=== PATIENT | female | born 1970 | race Caucasian/White ===

== ENCOUNTER 2018-01-20 23:13 | Emergency (ER) | payer MEDICAID ==
[~2018-01-20] VITALS: Ht 152.4 cm; Wt 49.9 kg
--- NOTE | 2018-01-20 23:39 | Emergency Room Report ---
History of Present Illness General Chief Complaint: Head Injury Source: Patient Present Illness HPI This is a 47-year-old female with no significant past medical issue. She presents with chief complaint of head injury and right shoulder pain. She is walking down the steps and missed a step and fell down 67 step. She hit her head. She had a brief loss of consciousness. Also complaining of right shoulder pain. Pain is 10 out of 10. Worse with movement. Better with rest. Onset was just prior to arrival. No vomiting. Allergies: Coded Allergies: NSAIDS (NON-STEROIDAL ANTI-INFLAMMA (Verified Allergy, Unknown, 01/20/18) PENICILLINS (Verified Allergy, Unknown, 01/20/18) Patient History Past Medical History: see triage record, old chart reviewed Past Surgical History: other Pertinent Family History: none Social History: Reports: smoking Last Menstrual Period: miscarriage 01/12/2018 Now: No Immunizations: other Reviewed Nursing Documentation: PMH: Agreed; PSxH: Agreed Nursing Documentation-PMH Past Medical History: No Stated History Review of Systems Eye: Denies: eye pain, blurred vision ENT: Denies: ear pain, nose congestion, throat swelling Respiratory: Denies: cough, shortness of breath Cardiovascular: Denies: chest pain, palpitations Gastrointestinal: Denies: abdominal pain, diarrhea, nausea, vomiting Musculoskeletal: Reports: joint pain, muscle stiffness; Denies: back pain Skin: Denies: rash Neurological: Denies: headache, numbness Endocrine: Denies: increased thirst, increased urine Hematologic/Lymphatic: Denies: easy bruising All Other Systems: negative except mentioned in HPI Physical Exam Vital Signs Date Time Temp Pulse Resp B/P (MAP) Pulse Ox O2 Delivery O2 Flow Rate FiO2 01/20/18 23:22 98.2 102 16 102/69 96 Room Air vitals normal Sp02 EP Interpretation: reviewed, normal General Appearance: well appearing, no apparent distress, alert Head: normocephalic, other - 1 cm superficial laceration to right upper eyelid. Well approximated. Mild hematoma. Eyes: bilateral eye PERRL, bilateral eye EOMI ENT: hearing grossly normal, normal pharynx Neck: full range of motion, supple, no meningismus Respiratory: chest non-tender, lungs clear, normal breath sounds Cardiovascular #1: regular rate, rhythm, no murmur Gastrointestinal: normal bowel sounds, non tender, no mass, no organomegaly, no bruit, non-distended Musculoskeletal: back normal, gait/station normal, normal range of motion, other - Right shoulder pain diffusely. Psychiatric: mood/affect normal Skin: warm/dry Medical Decision Making Diagnostic Impression: Primary Impression: Acute head injury Qualified Codes: S09.90XA - Unspecified injury of head, initial encounter Additional Impressions: Facial laceration Qualified Codes: S01.81XA - Laceration without foreign body of other part of head, initial encounter Contusion of shoulder, right Qualified Codes: S40.011A - Contusion of right shoulder, initial encounter ER Course Patient present with a head injury. She has a small laceration that does not need suturing. She keep asking for pain medication. She's been here numerous times in the past with different pain complaint. I did give her [place]. I'm uncomfortable prescribing anything more. We'll discharge home. CT/MRI/US Diagnostic Results CT/MRI/US Diagnostic Results : Imaging Test Ordered: CT head Impression negative per radiologist Last Vital Signs Date Time Temp Pulse Resp B/P (MAP) Pulse Ox O2 Delivery O2 Flow Rate FiO2 01/20/18 23:22 98.2 102 16 102/69 96 Room Air Status: improved Disposition: HOME, SELF-CARE Condition: Stable Scripts Hydrocodone/Acetaminophen 5-325* (HYDROCODONE/ACETAMINOPHEN 5-325*) 1 Each Tablet 1 TAB ORAL Q6H PRN for For Pain, #10 TAB 0 Refills Prov: Chauncey Mcmanus MD 01/21/18 Additional Instructions: Follow-up with your doctor in 7 days. Return if symptom worsen. Chauncey Mcmanus MD Jan 20, 2018 23:39
[2018-01-20] MEDS ORDERED: Norco 5mg/325mg tab ORAL ONE (23:45)
[2018-01-20 23:47] VITALS: BP 92/58
--- NOTE | 2018-01-21 00:50 | Diagnostic Imaging Report ---
EXAM: CT Head Without Intravenous Contrast CLINICAL HISTORY: TRAUMA TECHNIQUE: Axial computed tomography images of the head/brain without intravenous contrast. CTDI is 70 mGy and DLP is 1400 mGy-cm. One or more of the following dose reduction techniques were used: automated exposure control, adjustment of the mA and/or kV according to patient size, use of iterative reconstruction technique. COMPARISON: None. FINDINGS: Brain: Streak artifact in the skull base region. Grossly, no acute intracranial hemorrhage. Age-appropriate white matter appearance. Ventricles: Unremarkable. No ventriculomegaly. Bones/joints: Unremarkable. No acute fracture. Soft tissues: Extracranial soft tissue contusion. Sinuses: Unremarkable as visualized. Mastoid air cells: Unremarkable as visualized. No mastoid effusion. IMPRESSION: No acute intracranial hemorrhage or skull fractures.
[2018-01-21] MEDS ORDERED: HYDROCODON-ACE1 EA15 ORAL (01:08)
[2018-01-21 01:13] VITALS: BP 134/78
--- NOTE | 2018-01-21 05:44 | Diagnostic Imaging Report ---
EXAM: XR Right Shoulder Complete, 2 or More Views CLINICAL HISTORY: TRAUMA TECHNIQUE: Two or more views of the right shoulder. COMPARISON: No relevant prior studies available. FINDINGS: Bones/joints: Unremarkable. No acute fracture. No dislocation. Soft tissues: Unremarkable. IMPRESSION: No radiographic evidence of acute fracture or dislocation.
== END 2018-01-21 01:13 | disposition home or self-care (01) ==
LOC: EMR 01-21 00:43
DX: S09.90XA Unspecified injury of head, initial encounter (principal); S01.111A Laceration without foreign body of right eyelid and periocular area, initial encounter; S40.011A Contusion of right shoulder, initial encounter; W10.9XXA Fall (on) (from) unspecified stairs and steps, initial encounter; Y92.9 Unspecified place or not applicable; Z88.0 Allergy status to penicillin; F17.200 Nicotine dependence, unspecified, uncomplicated
CPT/HCPCS: 70450; 99284